=== PATIENT | male | born 1955 | race Caucasian/White ===

== ENCOUNTER → 2019-07-29 | Outpatient (CLI) | payer BC ==
[2016-03-09 17:21] VITALS: BP 122/83
[~2019-07-29] MED LIST: FLOVENT HFA12 G1 IH
== END ==
LOC: RAD 13:24
DX: J32.9 Chronic sinusitis, unspecified (principal); Z98.890 Other specified postprocedural states

== ENCOUNTER → 2022-06-06 | Outpatient (CLI) | payer BC | LOC: RAD 16:28 | DX: J45.909 Unspecified asthma, uncomplicated (principal) ==

== ENCOUNTER → 2022-10-03 | Outpatient (CLI) | payer BC ==
[2022-10-03 07:37] LABS: BASO # 0.03 K/mm3 (0.02-0.10); EOS # 0.99 K/mm3 (0.04-0.40); EOS % 15.5 % (0.0-4.0); HEMATOCRIT 41.8 % (42.0-52.0); HEMOGLOBIN 14.5 g/dL (13.5-18.0); LYMPH# 1.67 K/mm3 (1.50-4.00); MEAN CELL VOLUME 84 fl (78-100); MEAN CORPUSCULAR HEMOGLOBIN 29 pg (27-31); MEAN CORPUSCULAR HGB CONC 35 g/dL (33-37); MEAN PLATELET VOLUME 13.1 fl (7.4-10.4); MONO # 0.47 K/mm3 (0.20-0.80); NEU # 3.22 K/mm3 (1.40-6.50); RED BLOOD COUNT 4.98 M/mm3 (4.20-5.60); RED CELL DISTRIBUTION WIDTH 12.8 % (11.5-14.5); WHITE BLOOD COUNT 6.4 K/mm3 (4.8-10.8)
[2022-10-03 07:43] LABS: ALBUMIN 4.1 g/dL (3.4-4.8); POTASSIUM 4.3 mmol/L (3.5-5.1)
[2022-10-03 07:44] LABS: CALCIUM 9.4 mg/dL (8.3-10.5)
[2022-10-03 07:46] LABS: TOTAL PROTEIN 7.4 g/dL (6.2-8.1)
[2022-10-03 07:47] LABS: TOTAL BILIRUBIN 0.6 mg/dL (0.2-1.2)
[2022-10-03 07:54] LABS: PLATELET COUNT 101 K/mm3 (130-400)
== END ==
LOC: LAB 07:13
PROVIDERS: Family Medicine
DX: Z12.5 Encounter for screening for malignant neoplasm of prostate (principal); Z13.1 Encounter for screening for diabetes mellitus; Z13.220 Encounter for screening for lipoid disorders; J30.2 Other seasonal allergic rhinitis; R09.81 Nasal congestion